=== PATIENT | female | born 1970 | race Hispanic/Latino ===

== ENCOUNTER 2017-05-15 09:05 | Outpatient (CLI) | payer OTHER ==
--- NOTE | 2017-05-15 11:39 | ULT ---
ABDOMINAL ULTRASOUND: History: Abdominal pain. FINDINGS: Images of the gallbladder appear unremarkable. No evidence of gallstones identified. Gallbladder wall is normal. Common duct is normal caliber at 4 mm. The visualized liver, pancreas, and spleen appear unremarkable. Visualized abdominal aorta and vena c payton appear unremarkable. Both kidneys are imaged and appear unremarkable. IMPRESSION: Unremarkable abdominal ultrasound. POS: [facility]
== END 2017-05-15 09:06 | disposition home or self-care (01) ==
LOC: ULT 09:05
PROVIDERS: ATTEND Nurse Practitioner Family
DX: R10.30 Lower abdominal pain, unspecified (principal)
CPT/HCPCS: 76700

== ENCOUNTER 2017-12-03 08:45 | Outpatient (CLI) | payer OTHER ==
[~2017-12-03 08:45] MED LIST: Iopamidol 370 76% 100 ML VIAL ONE
--- NOTE | 2017-12-03 12:00 | CT ---
CT ABDOMEN AND PELVIS WITH IV CONTRAST: 12/03/2017 HISTORY: Left lower quadrant abdominal pain of unknown etiology. COMPARISON: None available. FINDINGS: The lung bases are clear. The liver, spleen, pancreas, bilateral adrenal glands, kidneys, urinary bladder, and opacified bowel demonstrate a normal CT appearance. The appendix is visualized and is normal in caliber. The uterus is lobulated and demonstrates abnormal configuration. Findings may be related to large, p edunculated uterine fibroids with calcifications of fibroids within the more superiorly located uteri ne fibroid. There is a large, heterogeneous, mass-like structure seen to the right of the uterus, wh ich measures 6.7 cm craniocaudal x 7.4 cm AP x 5.5 cm transverse, which is closely adjacent to the lo wer uterine segment, and this may represent a large, pedunculated uterine fibroid. There is also a m ass seen further superiorly and to the left of midline, which measures 7.1 cm craniocaudal x 8 cm tra nsverse x 7.5 cm AP, which may represent coalescence of multiple uterine fibroids involving the uteru s. The most superior extent of the larger uterine fibroid extends to the level of the iliac crest. There is mild mass effect at the left posterolateral aspect of the urinary bladder. No free fluid, fluid collection, or lymphadenopathy is seen in the abdomen or pelvis. IMPRESSION: 1. Abnormal appearance and configuration of the uterus with lobulated, heterogeneous masses present. Findings are thought to be related to a fibroid uterus with large, pedunculated uterine fibroids. An [employer] consultation is recommended. 2. No acute findings are seen in the abdomen or pelvis. POS: [facility]
== END 2017-12-03 08:46 | disposition home or self-care (01) ==
LOC: CT 08:45
PROVIDERS: ATTEND Family Medicine
DX: R10.32 Left lower quadrant pain (principal); N85.9 Noninflammatory disorder of uterus, unspecified
CPT/HCPCS: 74177

== ENCOUNTER 2020-07-17 16:49 | Emergency (ER) | payer SELFPAY ==
[2020-07-17 17:20] LABS: Bilirubin Negative (Negative); Blood, Urine Negative (Negative); Clarity Clear (Clear); Glucose, Urine (Dipstick) Normal (Negative); Ketone, Urine Negative (Negative); Leukocyte Negative Leu/uL (Negative); Nitrite Negative (Negative); Protein, Urine (Dipstick) Negative (Neg-Trace); Specific Gravity, Urine 1.003 (1.002-1.036); Urobilinogen Normal mg/dL (Less than 2); pH, Urine 6.5 (5.0-9.0)
[2020-07-17 17:20] LABS: #Basophils 0.1 thou/uL (0.0-0.2); #Eosinphils 0.1 thou/uL (0.0-0.7); #Lymphocytes 2.5 thou/uL (1.20-3.40); #Monocytes 0.4 thou/uL (0.11-0.59); #Neutrophils 3.8 thou/uL (1.40-6.50); %Basophils 0.8 % (0.0-1.0); %Eosinophils 1.1 % (0.0-10.0); %Lymphocytes 36.7 % (21.0-51.0); %Monocytes 5.9 % (0.0-10.0); %Neutrophils 55.4 % (42.0-75.0); Hemoglobin 12.8 g/dL (12.0-16.0); Mean Corpuscular HGB CONC 33.7 g/dL (32.0-36.0); Mean Corpuscular Hemoglobin 29.5 pg (27.0-31.0); Mean Corpuscular Volume 87.6 fL (78.0-98.0); Mean Platelet Volume 8.9 fL (7.4-10.4); Platelet Count 267 thou/uL (130-400); RBC Distribution Width 11.9 % (11.5-14.5); Red Blood Cell (RBC) Count 4.35 mill/uL (4.20-5.40); White Blood Cell (WBC) Count 6.8 thou/uL (4.8-10.8)
[2020-07-17 17:21] LABS: Pregnancy Test - Urine (BHCG) Negative (Negative); Pregu Control Background? CLEAR/WHITE (CLR/WHITE); Pregu Control Bar Appear? YES (CONTROL BAR); Specific Gravity 1.003 (1.002-1.036)
[2020-07-17 17:43] LABS: ALT (SGPT) 23 U/L (8-55); AST (SGOT) 24 U/L (5-34); Albumin 4.5 g/dL (3.5-5.0); Alkaline Phosphatase 100 U/L (40-110); Anion Gap 13 mmol/L (10-20); BUN (Urea Nitrogen) 7 mg/dL (9.8-20.1); Bilirubin, Total 0.4 mg/dL (0.2-1.2); Calc. Creatinine Clearance 0 mL/min (70-130); Calcium 9.4 mg/dL (7.8-10.44); Carbon Dioxide 27 mmol/L (22-29); Chloride 104 mmol/L (98-107); Globulin 3.3 g/dL (2.4-3.5); Glucose 102 mg/dL (70-105); Lipase 24 U/L (8-78); Potassium 3.5 mmol/L (3.5-5.1); Protein, Total 7.8 g/dL (6.0-8.3); Sodium 140 mmol/L (136-145)
== END 2020-07-17 19:46 | disposition home or self-care (01) ==
LOC: ERS 16:49
DX: R10.32 Left lower quadrant pain (principal); R10.33 Periumbilical pain
CPT/HCPCS: 36415; 74177; 80053; 81003; 81025; 82274; 83690; 85025; 86850; 86900; 86901; 93005